=== PATIENT | female | born 1995 | race Caucasian/White ===

== ENCOUNTER 2016-05-27 21:24 | Emergency (ER) | payer OTHER ==
[2016-05-27 21:32] VITALS: BP 97/60; PULSE 83; TEMP 98.4; BMI 31.1
--- NOTE | 2016-05-27 22:32 | PDOC ---
History of Present Illness - General Chief Complaint: Injury Stated Complaint: 31 wks preg s/p fall Time Seen by Provider: 05/27/16 21:26 - History of Present Illness Initial Comments: This 20-year-old female, 31 weeks , presents with a history of slipping down a few stairs as she was descending a wooden staircase a few hours prior to presentation. Patient states that she landed on her buttocks and slid down without hitting her head or neck. No loss of consciousness. No history of neck or upper body pain. Patient states she has some pain with movement of bilateral flanks but is able to walk without difficulty. There is no lower extremity pain or weakness/numbness. The patient denies anterior abdominal pain; vaginal bleeding or discharge. Patient states that her has been without complications thus far. On no medications Only ALLERGIES shellfish Past History - Past Medical History Allergies/Adverse Reactions: Allergies Allergy/AdvReac Type Severity Reaction Status Date / Time shellfish derived Allergy Verified 01/25/16 21:52 Home Medications: Ambulatory Orders Pnv#71/Iron/Folic Acid/Dha [Prena1 Lupe Softgel] 1 tab PO DAILY 01/25/16 - Psycho/Social/Smoking Cessation Hx Anxiety: No Suicidal Ideation: No Smoking History: Never smoked Have you smoked in the past 12 months: No Number of Cigarettes Smoked Daily: 0 Information on smoking cessation initiated: No Hx Alcohol Use: No Drug/Substance Use Hx: No Substance Use Type: None Review of Systems - Review of Systems Able to Perform ROS?: Yes Comments:: 12 point review of systems is negative except for what is noted in the history of present illness *Physical Exam - Vital Signs Last Vital Signs Temp Pulse Resp BP Pulse Ox 98.4 F 83 14 97/60 100 05/27/16 21:29 05/27/16 21:29 05/27/16 21:29 05/27/16 21:29 05/27/16 21:29 - Physical Exam Comments: Young adult female, alert and oriented 3, in no acute distress Vital signs as noted HEAD: No contusions, abrasions or lacerations of the scalp; no facial ecchymosis , deformities or tenderness EYES: Pupils equal, round and reactive to light, extraocular movements intact, sclera anicteric, conjunctiva clear PHARYNX: No erythema, exudate or edema; mucous membranes moist NECK: Supple, nontender, no masses or bruits LUNGS: Clear to auscultation bilaterally CARDIAC: S1, S2 normal; no extra sounds, rubs or murmurs heard ABDOMEN:Normoactive bowel sounds, nontender gravid uterus ,no other tenderness , no masses, no organomegaly BACK: Minimal bilateral flank tenderness; no central thoracic/lumbar or sacral tenderness; no contusion/abrasion/ecchymosis EXTREMITIES: Normal range of motion, no edema,deformity or tenderness NEUROLOGICAL: Cranial nerves II through XII grossly intact. Normal speech, normal gait.moving all 4 extremities equally, Sensation intact in all extremities. PSYCH: Normal mood, normal affect. SKIN: Warm, Dry, normal turgor, no rashes or lesions noted. Ultrasound stethoscope used to evaluate heart rate: Strong pulse heard just to the left of midline in the sub umbilical region, at 132/minute Medical Decision Making - Medical Decision Making This 20-year-old woman who is 31 weeks presents with a history of falling down a few stairs, slipping onto her lower back buttocks area. Patient has minimal symptoms (bilateral flank soreness) and normal exam except for mild flank tenderness. She comes into the emergency room for an evaluation of the well-being of her fetus. She has had no anterior abdominal pain or vaginal bleeding. Ultrasound stethoscope used to determine heart rate: Strong signal at 132 beats per minutes is heard at lower abdomen (just left of midline) Patient will be discharged with instructions to take Tylenol only if pain is severe. If she has any anterior abdominal pain or vaginal bleeding/discharge, she should go to an emergency room. It was explained to the patient that emergency rooms that are associated with obstetrical hospitals (such as [facility][where the patient is scheduled to have delivery ]) have access to labor and delivery suites. There, more extensive evaluation for monitoring is possible. *DC/Admit/Observation/Transfer Diagnosis at time of Disposition: Third trimester Lumbar strain Qualifiers: Encounter type: initial encounter Qualified Code(s): S39.012A - Strain of muscle, fascia and tendon of lower back, initial encounter - Discharge Dispostion Disposition: HOME Condition at time of disposition: Stable - Patient Instructions Printed Discharge Instructions: DI for Back Strain or Sprain Additional Instructions: Tylenol as needed for back pain Return to ER (preferably [place] as discussed) if you have abdominal pain/ bleeding/vaginal discharge Follow-up with your systems qa analyst within the next week
== END 2016-05-27 22:34 | disposition home or self-care (01) ==
LOC: FER 21:24
DX: O26.893 Other specified pregnancy related conditions, third trimester (principal); S39.012A Strain of muscle, fascia and tendon of lower back, initial encounter; W10.9XXA Fall (on) (from) unspecified stairs and steps, initial encounter; Y93.89 Activity, other specified; Y92.9 Unspecified place or not applicable
CPT/HCPCS: 99282-25

== ENCOUNTER 2016-08-02 08:30 | Inpatient (IN) | payer OTHER ==
[2016-08-02 09:31] LABS: BASOPHIL 0.2 % (0-2.0); MCH 24.9 pg (25.7-33.7); MCHC 32.3 g/dl (32.0-36.0); MEAN CELL VOLUME 77.2 fl (80-96); MEAN PLT VOLUME 8.2 fl (7.5-11.1); NEUTROPHILS 77.8 % (42.8-82.8); PLATELET COUNT 236 K/MM3 (134-434); RDW 16.2 % (11.6-15.6); WHITE BLOOD COUNT 13.5 K/mm3 (4.0-10.0)
[2016-08-02 09:33] LABS: INR 0.96 (0.82-1.09); PROTHROMBIN TIME (PATIENT) 10.6 SEC (9.98-11.88)
[2016-08-02 09:35] LABS: ACTIVATED PTT 25.6 SECONDS (26.9-34.4); CALCIUM 8.3 mg/dL (8.5-10.1); CREATININE 0.6 mg/dL (0.55-1.02)
[2016-08-02] MEDS ORDERED: DINOPROSTONE 10 MG VAGINAL SUPPOSITORY VG ONE (09:41)
--- NOTE | 2016-08-02 09:54 | HP ---
Past Medical History - Primary Care Physician PCP:: Brodie Mahajan - Admission Chief Complaint: 40.5 weeks, borderline oligo, for cervidil induction History of Present Illness: 20 yp f edc by sono 07/28/16 sono AURELIO 7.6 cm on 08/01/16 admitted for cervidil induction, rba discussed , agreed to be induced, cx 1 cm 50 vx -1 mi, fhr cat 1. irregular contraction History Source: Patient Limitations to Obtaining History: No Limitations - Past Medical History ...: 1 ...Para: 0 ...EDC by Dates: 07/28/16 ...EDC by Sono: 07/29/16 - Past Surgical History Hx Myomectomy: No Hx Transabdominal Cerclage: No - Smoking History Smoking history: Never smoked Have you smoked in the past 12 months: No Aproximately how many cigarettes per day: 0 - Alcohol/Substance Use Hx Alcohol Use: No - Social History Usual Living Arrangement: Yes: With Spouse History of Recent Travel: No Home Medications - Allergies Allergies/Adverse Reactions: Allergies Allergy/AdvReac Type Severity Reaction Status Date / Time shellfish derived Allergy Hives Verified 08/02/16 09:35 - Home Medications Home Medications: Ambulatory Orders Pnv#71/Iron/Folic Acid/Dha [Prena1 Lupe Softgel] 1 tab PO DAILY 01/25/16 Ferrous Sulfate [Feosol] 325 mg PO DAILY 08/02/16 Review of Systems - Review of Systems Constitutional: reports: No Symptoms Eyes: reports: No Symptoms HENT: reports: No Symptoms Neck: reports: No Symptoms Cardiovascular: reports: No Symptoms Respiratory: reports: No Symptoms Gastrointestinal: reports: No Symptoms Genitourinary: reports: No Symptoms Breasts: reports: No Symptoms Reported Integumentary: reports: No Symptoms Neurological: reports: No Symptoms Endocrine: reports: No Symptoms Hematology/Lymphatic: reports: No Symptoms Psychiatric: reports: No Symptoms Physical Exam - Maternity Constitutional: Yes: Well Nourished, No Distress, Calm Eyes: Yes: WNL, Conjunctiva Clear, EOM Intact HENT: Yes: WNL, Atraumatic, Normocephalic Neck: Yes: WNL, Supple, Trachea Midline Cardiovascular: Yes: WNL, Regular Rate and Rhythm Breast(s): Yes: WNL - Abdominal Exam/OB Fundal Height: 40 Number of Fetuses: Single Presentation: Vertex Contractions: Yes Regularity: Irregular Intensity: Unaware Monitor Mode: External Heart Rate Location: RLQ Category: I Accelerations: Uniform Decelerations: None - Vaginal Exam/OB Vaginal Bleediing: No Speculum Exam: No Amniotic Membrane Status: Intact Station: -1 - Physical Exam Musculoskeletal: Yes: Back Pain Edema: Yes Edema: LLE: Trace, RLE: Trace Deep Tendon Reflex Grade: Normal +2 Psychiatric: Yes: WNL - Labs Lab Results: CBC, BMP 08/02/16 07:45 Hemorrhage Risk Assessment - Risk Factors High Risk Factors: Yes: None Risk Score: 0 Risk Level: Low Risk Problem List - Problems (1) Post term over 40 weeks Code(s): O48.0 - POST-TERM Assessment/Plan admit for cervidil induction, rba discussed
[2016-08-02 10:07] VITALS: BMI 32.2
--- NOTE | 2016-08-02 10:11 | PN ---
Progress Note (short form) - Note Progress Note: cx 1cm 50 vx -2 mi, fhr cat1 , cervidil inserted Problem List - Problems (1) Post term over 40 weeks Code(s): O48.0 - POST-TERM
[2016-08-02] MEDS: DEXTROSE 5%-LACTATED RINGERS 1,000 ML IV SCH ×2 (14:00→17:17)
[2016-08-02] MEDS ORDERED: AMPICILLIN 2 GM/100 ML BAG (PRE-DOCKED) IVPB ONE (18:00)
--- NOTE | 2016-08-02 18:54 | PN ---
Progress Note (short form) - Note Progress Note: cervidil fell out at 520 pm, cx full 100 vx 2+ fhr cat 1 Problem List - Problems (1) Post term over 40 weeks Code(s): O48.0 - POST-TERM
[2016-08-02] MEDS ORDERED: BENZOCAINE 28 GM HEMORRHOIDAL OINTMENT TP PRN (19:30)
[2016-08-02] MEDS ORDERED: D5W-LR W/ 20 UNITS OXYTOCIN 1,000 ML IV SCH ×2 (19:30→19:45)
[2016-08-02] MEDS ORDERED: oxyCODONE HCL 5 MG TABLET PO PRN (19:30)
[2016-08-02] MEDS ORDERED: WITCH HAZEL 50% (TUCKS) 40 PAD/JAR PAD TP PRN (19:30)
[2016-08-02] MEDS ORDERED: METHYLERGONOVINE MALEATE 0.2 MG/1 ML AMP IM PRN (19:30)
[2016-08-02] MEDS ORDERED: IBUPROFEN 600 MG TABLET (FP) PO PRN (19:30)
[2016-08-02] MEDS ORDERED: ACETAMINOPHEN 325 MG TABLET (FP) PO PRN (19:30)
[2016-08-02] MEDS ORDERED: BENZOCAINE 20% 57 GM BOTTLE TP PRN (19:30)
[2016-08-02] MEDS ORDERED: BISACODYL 10 MG SUPP.RECT RC PRN (19:30)
[2016-08-02 19:37] LABS: ARTERIAL BLD GAS O2 SATURATION 57.1 % (90-98.9); ARTERIAL BLOOD GAS HCO3 22.9 meq/L (22-26); ARTERIAL BLOOD GAS pH 7.36 (7.35-7.45)
[2016-08-02 19:40] LABS: VENOUS BLOOD GAS HCO3 23.3 meq/L (19-25)
[2016-08-02 19:42] LABS: VENOUS PH 7.23 (7.32-7.42)
[2016-08-02 19:43] LABS: ARTERIAL BLOOD GAS PO2 29.4 mmHg (80-100); LPM/O2% 21%; PT. ON O2? no; TYPE OF O2 room air
[2016-08-02] MEDS ORDERED: AMPICILLIN (PRE-DOCKED) 1 GM/100 ML BAG IVPB SCH (22:00)
[2016-08-02] MEDS: FERROUS SO4 325 MG TABLET (FP) PO SCH (23:45)
--- NOTE | 2016-08-03 04:01 | PN ---
Progress Note (short form) - Note Progress Note: ppd 1doing well, no excess vaginal bleeding, voids ok CBC, BMP 08/02/16 07:45 08/02/16 07:45 Last Vital Signs Temp Pulse Resp BP Pulse Ox 98.4 F 105 H 18 114/63 99 08/03/16 02:00 08/03/16 02:00 08/03/16 02:00 08/03/16 02:00 08/02/16 20:00 abdomen soft, uterus firm, non tender lochia mild no calf tenderness plan ambulate cbc Problem List - Problems (1) Post term over 40 weeks Code(s): O48.0 - POST-TERM
[2016-08-03 07:43] LABS: MCHC 32.4 g/dl (32.0-36.0); MEAN CELL VOLUME 77.2 fl (80-96); MEAN PLT VOLUME 8.7 fl (7.5-11.1); PLATELET COUNT 249 K/MM3 (134-434); RDW 16.6 % (11.6-15.6); WHITE BLOOD COUNT 21.6 K/mm3 (4.0-10.0)
[2016-08-03] MEDS: PRENATAL VITAMINS W/ FOLIC ACID TABLET (FP) PO SCH (09:41)
[2016-08-03] MEDS: FERROUS SO4 325 MG TABLET (FP) PO SCH ×2 (09:44→21:13)
[2016-08-03] MEDS ORDERED: INFLUENZA VACCINE 60 MCG/0.5 ML (P/F DISP.SYRIN 16-17) IM ONE (10:00)
[2016-08-03] MEDS ORDERED: [UNRECOGNIZED DRUG - OTHER] PO SCH (10:00)
[2016-08-03] MEDS ORDERED: FOLIC ACID PO SCH (10:00)
[2016-08-03] MEDS ORDERED: IRON PO SCH (10:00)
[2016-08-03] MEDS ORDERED: DIPHTH,PERTUSS(ACELL),TET 0.5 ML DISP.SYRIN IM ONE (10:00)
[2016-08-03] MEDS ORDERED: PNV PO SCH (10:00)
[2016-08-03] MEDS ORDERED: INFLUENZA VACCINE 45 MCG/0.5 ML (MDV 16-17) IM ONE (10:00)
[2016-08-03] MEDS ORDERED: DHA PO SCH (10:00)
[2016-08-03] MEDS ORDERED: PATIENT'S OWN MEDICATION (NON-FORMULARY) (Ferrous Sulfate [Feosol] 325 MG) PO SCH (10:00)
[2016-08-03 16:05] LABS: ANISOCYTOSIS 1+; MICROCYTOSIS 1+; PLATELET ESTIMATE ADEQUATE (NORMAL); POLYCHROMASIA 1+
[2016-08-03] MEDS: SENNOSIDES/DOCUSATE COMBO (SENNA PLUS) TABLET (UD) PO PRN (21:13)
--- NOTE | 2016-08-04 08:08 | DS ---
Physical Exam-LAUNCH CHECK OUT Vital Signs: Vital Signs Temperature 98.0 F 08/03/16 21:14 Pulse Rate 88 08/03/16 21:14 Respiratory Rate 20 08/03/16 21:14 Blood Pressure 122/69 08/03/16 21:14 O2 Sat by Pulse Oximetry (%) 99 08/02/16 20:00 Constitutional: Yes: Well Nourished, No Distress, Calm Eyes: Yes: WNL, Conjunctiva Clear, EOM Intact HENT: Yes: WNL, Atraumatic, Normocephalic Neck: Yes: WNL, Supple, Trachea Midline Cardiovascular: Yes: WNL, Regular Rate and Rhythm Respiratory: Yes: WNL, Regular, CTA Bilaterally Gastrointestinal: Yes: WNL ...Rectal Exam: Yes: WNL Renal/: Yes: WNL ....Post : Yes: Uterus firm, Uterus non-tender, Slight lochia rubra Breast(s): Yes: WNL Musculoskeletal: Yes: WNL Extremities: Yes: WNL Integumentary: Yes: WNL Neurological: Yes: WNL, Alert, Oriented ...Motor Strength: WNL Psychiatric: Yes: WNL, Alert, Oriented Labs: CBC, BMP 08/03/16 05:35 08/02/16 07:45 Delivery - Delivery Vaginal Delivery: Spontaneous (no complication) Type of Anesthesia: None Episiotomy/Laceration: None EBL (cc): 300 Delivery, Single - Stages of Labor Date 1st Stage Initiatied: 08/02/16 Time 1st Stage Initiated: 17:00 Date 2nd Stage Initiated: 08/02/16 Time 2nd Stage Initiated: 18:15 Date of Delivery: 08/02/16 Time of Delivery: 19:03 Time Placenta Delivered: 19:10 Placenta: Yes: Spontaneous - Condition of Infant Mine Inspector/Piping Drafter Present: No Infant Gender: Female Weight: 6 lb 14 oz Position: Left, OA Total Hours ROM (Hrs/Mins): 3 MIN - 1 Minute Total Score: 9 5 Minutes Total Score: 9 - [place] Feeding Plan Initial Plan: Elected not to breastfeed exclusively throughout hospitalization Discharge Summary Reason For Visit: CERVICAL INDUCTION Current Active Problems Post term over 40 weeks (Acute) Procedures: Principal: Condition: Good - Instructions Diet, Activity, Other Instructions: regular diet, follow up [facility] 4 weeks Referrals: Brodie Mahajan MD [Staff Physician] - Disposition: HOME - Home Medications Comprehensive Discharge Medication List: Ambulatory Orders Pnv#71/Iron/Folic Acid/Dha [Prena1 Lupe Softgel] 1 tab PO DAILY 01/25/16 Ferrous Sulfate [Feosol] 325 mg PO DAILY 08/02/16 Ibuprofen [Motrin -] 600 mg PO QID #28 tablet 08/04/16
[2016-08-04] MEDS: FERROUS SO4 325 MG TABLET (FP) PO SCH ×2 (09:19→22:18)
[2016-08-04] MEDS: PRENATAL VITAMINS W/ FOLIC ACID TABLET (FP) PO SCH (09:19)
[2016-08-04] MEDS: DEXTROSE 5%-LACTATED RINGERS 1,000 ML IV SCH ×2 (19:44→19:45)
[2016-08-04] MEDS: SENNOSIDES/DOCUSATE COMBO (SENNA PLUS) TABLET (UD) PO PRN (22:18)
[2016-08-05 08:28] LABS: BASOPHIL 0.3 % (0-2.0); MCH 25.5 pg (25.7-33.7); MCHC 32.7 g/dl (32.0-36.0); MEAN CELL VOLUME 78.2 fl (80-96); NEUTROPHILS 67.9 % (42.8-82.8); PLATELET COUNT 263 K/MM3 (134-434); WHITE BLOOD COUNT 9.6 K/mm3 (4.0-10.0)
--- NOTE | 2016-08-05 08:51 | PN ---
Post Progress Note - Subjective Subjective: no complains Post Day: 3 Type of Delivery: Vital Signs: Vital Signs Temperature 97.8 F 08/04/16 22:00 Pulse Rate 97 H 08/04/16 22:00 Respiratory Rate 18 08/04/16 22:00 Blood Pressure 122/63 08/04/16 22:00 O2 Sat by Pulse Oximetry (%) 99 08/02/16 20:00 Breast Exam: Yes: Soft, Other (BF ). No: Engorged Uterus: Yes: Fundus Firm, Fundus below umbilicus Abdomen/GI: Yes: Tolerating PO Lochia, amount: Moderate Extremities: Yes: Calves non-tender Perineum: Yes: Intact Activity: Ambulating - Labs Labs: CBC WBC 9.6 K/mm3 (4.0-10.0) D 08/05/16 06:50 RBC 4.21 M/mm3 (3.60-5.2) 08/05/16 06:50 Hgb 10.8 GM/dL (10.7-15.3) 08/05/16 06:50 Hct 32.9 % (32.4-45.2) 08/05/16 06:50 MCV 78.2 fl (80-96) L 08/05/16 06:50 MCHC 32.7 g/dl (32.0-36.0) 08/05/16 06:50 RDW 17.0 % (11.6-15.6) H 08/05/16 06:50 Plt Count 263 K/MM3 (134-434) 08/05/16 06:50 MPV 8.0 fl (7.5-11.1) 08/05/16 06:50 Neutrophils % 67.9 % (42.8-82.8) 08/05/16 06:50 Lymphocytes % 21.6 % (8-40) D 08/05/16 06:50 Monocytes % 8.2 % (3.8-10.2) 08/05/16 06:50 Eosinophils % 2.0 % (0-4.5) D 08/05/16 06:50 Basophils % 0.3 % (0-2.0) 08/05/16 06:50 Band Neutrophils 8.0 % (0-10) 08/03/16 05:35 Platelet Estimate Adequate (NORMAL) 08/03/16 05:35 Polychromasia 1+ 08/03/16 05:35 Anisocytosis 1+ 08/03/16 05:35 Microcytosis 1+ 08/03/16 05:35 Assessment/Plan stable plan discharge today
[2016-08-05] MEDS: FERROUS SO4 325 MG TABLET (FP) PO SCH (10:25)
[2016-08-05] MEDS: PRENATAL VITAMINS W/ FOLIC ACID TABLET (FP) PO SCH (10:25)
[2016-08-05 10:47] VITALS: BP 120/67; PULSE 83; TEMP 98.1
--- NOTE | 2016-08-06 16:18 | DS ---
Physical Exam-CHILDREN'S MINISTRY DIRECTOR Vital Signs: Vital Signs Temperature 98.1 F 08/05/16 10:00 Pulse Rate 83 08/05/16 10:00 Respiratory Rate 18 08/05/16 10:00 Blood Pressure 120/67 08/05/16 10:00 O2 Sat by Pulse Oximetry (%) 99 08/02/16 20:00 Constitutional: Yes: Well Nourished, No Distress, Calm Eyes: Yes: WNL, Conjunctiva Clear, EOM Intact HENT: Yes: WNL, Atraumatic, Normocephalic Neck: Yes: WNL, Supple, Trachea Midline Cardiovascular: Yes: WNL, Regular Rate and Rhythm Respiratory: Yes: WNL, Regular, CTA Bilaterally Gastrointestinal: Yes: WNL ...Rectal Exam: Yes: WNL Renal/: Yes: WNL ....Post : Yes: Uterus firm, Uterus non-tender, Slight lochia rubra Breast(s): Yes: WNL Musculoskeletal: Yes: WNL Extremities: Yes: WNL Edema: No Integumentary: Yes: WNL Neurological: Yes: WNL, Alert, Oriented ...Motor Strength: WNL Psychiatric: Yes: WNL, Alert, Oriented Labs: CBC, BMP 08/05/16 06:50 08/02/16 07:45 Delivery - Delivery Vaginal Delivery: Spontaneous (no complication) Type of Anesthesia: None Episiotomy/Laceration: None EBL (cc): 300 Delivery, Single - Stages of Labor Date 1st Stage Initiatied: 08/02/16 Time 1st Stage Initiated: 17:00 Date 2nd Stage Initiated: 08/02/16 Time 2nd Stage Initiated: 18:15 Date of Delivery: 08/02/16 Time of Delivery: 19:03 Time Placenta Delivered: 19:10 Placenta: Yes: Spontaneous - Condition of Medical Genetics Director/Trial Justice Present: No Gender: Female Weight: 6 lb 14 oz Position: Left, OA Total Hours ROM (Hrs/Mins): 3 MIN - 1 Minute Total Score: 9 5 Minutes Total Score: 9 - [place] Feeding Plan Initial Plan: Elected not to breastfeed exclusively throughout hospitalization Discharge Summary Reason For Visit: CERVICAL INDUCTION Condition: Good - Instructions Diet, Activity, Other Instructions: regular diet, follow up [facility] care 4 weeks Referrals: Brodie Mahajan MD [Staff Physician] - Disposition: HOME - Home Medications Comprehensive Discharge Medication List: Ambulatory Orders Pnv#71/Iron/Folic Acid/Dha [Prena1 Lupe Softgel] 1 tab PO DAILY 01/25/16 Ferrous Sulfate [Feosol] 325 mg PO DAILY 08/02/16 Ibuprofen [Motrin -] 600 mg PO QID #28 tablet 08/04/16
== END 2016-08-05 12:10 | disposition home or self-care (01) | DRG 560 ==
LOC: JLDR 08:30 → J3W 20:41
PROVIDERS: ADMIT Obstetrics & Gynecology; ATTEND Obstetrics & Gynecology
PROC: 10E0XZZ Delivery of Products of Conception, External Approach (ICD-10-PCS; principal; 2016-08-02)
PROC: 3E0P7GC Introduction of Other Therapeutic Substance into Female Reproductive, Via Natural or Artificial Opening (ICD-10-PCS; 2016-08-02)
DX: O48.0 Post-term pregnancy (principal); O41.03X0 Oligohydramnios, third trimester, not applicable or unspecified; Z3A.40 40 weeks gestation of pregnancy; Z37.0 Single live birth
CPT/HCPCS: 36415; 36600; 59409; 80048; 82803; 85025; 85610; 85730; 86593; 86850; 86900; 86901; 90686; 90715; G0008